=== PATIENT | male | born 1950 | race Caucasian/White ===

== ENCOUNTER → 2021-08-02 | Outpatient (CLI) | payer MEDICARE, OTHER | LOC: KOH-I 07-27 09:00 | DX: R42 Dizziness and giddiness (principal) | CPT/HCPCS: 70450 ==

== ENCOUNTER → 2021-08-05 | Outpatient (CLI) | payer MEDICARE, OTHER | LOC: EXRD 08:30 → HEART 5 09:30 | DX: R42 Dizziness and giddiness (principal) | CPT/HCPCS: 93306; 93880 ==